=== PATIENT | female | born 1980 | race Caucasian/White ===

== ENCOUNTER 2023-09-25 17:45 | Outpatient (CLI) | payer MEDICARE, SELFPAY ==
[2023-09-25 15:12] LABS: Abs Immature Grans 0.01 10^3/uL (0.0-0.06); Absolute Basophil Count 0.03 10^3/uL (0.0-0.2); Absolute Eosinophil Count 0.05 10^3/uL (0.0-0.7); Absolute Lymphocyte Count 1.01 10^3/uL (1.2-3.4); Absolute Monocyte Count 0.45 10^3/uL (0.1-0.8); Absolute Neutrophil Count 5.13 10^3/uL (1.2-6.7); Basophils % 0.4; Eosinophils % 0.7; HCT 38.3 % (36.0-46.0); HGB 12.6 g/dL (11.2-15.7); Immature Grans % 0.1; Lymphocytes % 15.1; MCH 27.6 pg (27.0-33.0); MCHC 32.9 % (32.0-36.0); MCV 84 fL (80-95); MPV 10.9 fL (8.0-11.0); Monocytes % 6.7; Platelet Count 255 10^3/uL (130-400); RBC 4.57 10^6/uL (3.93-5.22); RDW-SD 39.4 fL; WBC 6.68 10^3/uL (4.4-10.8)
[2023-09-25 16:09] LABS: Iron 46 ug/dL (50-170)
[2023-09-25 16:16] LABS: ALT 20 U/L (14-59); AST 18 U/L (15-37); Albumin 3.7 g/dL (3.4-5.0); Alkaline Phosphatase 99 U/L (46-116); Anion Gap 11.1 mmol/L (3-11); BUN 6 mg/dL (7-18); Bilirubin, Total 0.3 mg/dL (0.2-1.0); CO2 25.9 mmol/L (21.0-32.0); CREATININE 0.9 mg/dL (0.55-1.02); Calcium 8.7 mg/dL (8.5-10.1); Chloride 104 mmol/L (98-107); Estimated GFR 80.84 (mL/min/1.73m2); Glucose 101 mg/dL (74-106); Potassium 3.9 mmol/L (3.5-5.1); Sodium 141 mmol/L (136-145); Total Protein 7.8 g/dL (6.4-8.2)
[2023-09-25 17:17] LABS: Vitamin B12 1959 pg/mL (193-986)
[2023-09-25 17:19] LABS: Folate > 20.0 ng/mL (8.6-20.0)
[2023-09-25 21:23] LABS: C Diff PCR Negative (Negative)
[2023-09-26 09:43] LABS: Total Iron Binding Capacity 315 ug/dL (250-450); Transferrin Sat 15 % (15-50)
[2023-09-26 23:42] LABS: Campylobacter PCR Negative (Negative); Salmonella PCR Negative (Negative); Shiga Toxin PCR Negative (Negative); Shigella/Enteroinvasive Ecoli Negative (Negative)
== END 2023-09-25 17:46 | disposition home or self-care (01) ==
PROVIDERS: Visit Provider Internal Medicine Gastroenterology
DX: K52.9 Noninfective gastroenteritis and colitis, unspecified (principal); R79.9 Abnormal finding of blood chemistry, unspecified
CPT/HCPCS: 36415; 80053; 87493; 87505; 82607; 82746; 83540; 83550; 83993; 85025; 86140

== ENCOUNTER 2023-10-09 08:15 | Outpatient (REF) | payer MEDICARE, SELFPAY ==
[2023-10-11 22:11] LABS: Calprotectin 62.7 mcg/g
== END 2023-10-09 08:16 | disposition home or self-care (01) ==
LOC: LBN 08:15
PROVIDERS: Visit Provider Internal Medicine Gastroenterology
DX: K52.9 Noninfective gastroenteritis and colitis, unspecified (principal)
CPT/HCPCS: 83993